=== PATIENT | male | born 1985 | race Caucasian/White ===

== ENCOUNTER 2022-05-03 19:25 | Inpatient (IN) | payer OTHER ==
[~2022-05-03] VITALS: Ht 175.3 cm; Wt 96.7 kg
[2022-05-03 20:05] LABS: Source, Urine Clean Catch
[2022-05-03 20:08] LABS: BASOPHILS ABSOLUTE AUTO 0.06 K/mm3 (0.00-0.23); BASOPHILS PERCENT AUTO 0 % (0-2); EOSINOPHILS PERCENT AUTO 0 % (0-6); Hematocrit 48.8 % (37.0-53.0); Hemoglobin 16.7 g/dL (13.5-17.5); IMMATURE GRAN ABSOLUTE AUTO 0.11 K/mm3 (0.00-0.10); IMMATURE GRAN PERCENT AUTO 1 % (0-1); LYMPHOCYTES ABSOLUTE AUTO 0.92 K/mm3 (0.84-5.20); LYMPHOCYTES PERCENT AUTO 5 % (21-46); MONOCYTES ABSOLUTE AUTO 0.56 K/mm3 (0.16-1.47); MONOCYTES PERCENT AUTO 3 % (4-13); Mean Corpuscular HGB 32.6 pg (26.0-34.0); Mean Corpuscular HGB Conc 34.2 g/dL (31.5-36.5); Mean Corpuscular Volume 95 fL (80-100); Mean Platelet Volume 10.3 fL (9.1-12.4); NEUTROPHILS ABSOLUTE AUTO 18.48 K/mm3 (1.96-9.15); NEUTROPHILS PERCENT AUTO 92 % (41-73); Platelet Count 293 K/mm3 (150-400); RDW Coefficient Variation 12.3 % (11.7-14.2); RDW Standard Deviation 43.3 fL (35.1-46.3); Red Blood Cell Count 5.13 M/mm3 (4.30-5.90); White Blood Cell Count 20.13 K/mm3 (4.00-11.30)
[2022-05-03 20:09] LABS: Appearance, Urine Clear (Clear); Bilirubin, Urine Neg (Neg); Blood, Urine 1+ (Neg); Color, Urine Amber (P-Yellow); Glucose Qualitative, Urine Neg (Neg); Ketones, Urine Neg (Neg); Leukocyte Esterase, Urine Neg (Neg); Nitrite, Urine Neg (Neg); Protein, Urine Neg (Neg); Specific Gravity, Urine 1.025 (1.003-1.022); Urobilinogen, Urine NORM (Normal)
[2022-05-03 20:21] LABS: Albumin/Globulin Ratio 0.9 (0.8-1.8); Bun/Creatinine Ratio 8.1 (12.0-20.0); Calcium, Blood 9.2 mg/dL (8.5-10.1); Creatinine, Blood 0.86 mg/dL (0.60-1.20); Globulin, Blood 4.5 g/dL (2.2-4.0); Potassium, Blood 3.9 mmol/L (3.5-5.5); Total Protein, Blood 8.5 g/dL (6.4-8.2)
[2022-05-03 20:22] LABS: Bacteria Rare /hpf; Squamous Epithelial Cells Few /hpf (Few); White Blood Cells, Urine 0-2 /hpf (0-5)
[2022-05-03 23:16] LABS: Influenza A, PCR NEGATIVE (NEGATIVE); Influenza B, PCR NEGATIVE (NEGATIVE); Resp Syncytial Virus, PCR NEGATIVE (NEGATIVE); SARS-Cov-2 (COVID-19) PCR, MMC NEGATIVE (NEGATIVE)
[2022-05-04 01:30] LABS: BASOPHILS ABSOLUTE AUTO 0.04 K/mm3 (0.00-0.23); BASOPHILS PERCENT AUTO 0 % (0-2); EOSINOPHILS PERCENT AUTO 0 % (0-6); Hematocrit 40.5 % (37.0-53.0); IMMATURE GRAN ABSOLUTE AUTO 0.07 K/mm3 (0.00-0.10); IMMATURE GRAN PERCENT AUTO 0 % (0-1); LYMPHOCYTES ABSOLUTE AUTO 0.72 K/mm3 (0.84-5.20); LYMPHOCYTES PERCENT AUTO 4 % (21-46); MONOCYTES ABSOLUTE AUTO 0.39 K/mm3 (0.16-1.47); MONOCYTES PERCENT AUTO 2 % (4-13); Mean Corpuscular HGB 32.8 pg (26.0-34.0); Mean Corpuscular HGB Conc 34.6 g/dL (31.5-36.5); Mean Corpuscular Volume 95 fL (80-100); NEUTROPHILS ABSOLUTE AUTO 15.91 K/mm3 (1.96-9.15); NEUTROPHILS PERCENT AUTO 93 % (41-73); Platelet Count 195 K/mm3 (150-400); RDW Coefficient Variation 12.2 % (11.7-14.2); RDW Standard Deviation 42.6 fL (35.1-46.3); Red Blood Cell Count 4.27 M/mm3 (4.30-5.90); White Blood Cell Count 17.13 K/mm3 (4.00-11.30)
[2022-05-04 01:48] LABS: Magnesium, Blood 1.5 mg/dL (1.6-2.4)
[2022-05-04 01:54] LABS: Albumin/Globulin Ratio 0.9 (0.8-1.8); Bilirubin, Total 0.7 mg/dL (0.1-1.0); Bun/Creatinine Ratio 7.8 (12.0-20.0); Creatinine, Blood 0.89 mg/dL (0.60-1.20); Globulin, Blood 3.5 g/dL (2.2-4.0); Phosphorus, Blood 1.7 mg/dL (2.5-4.9); Potassium, Blood 3.7 mmol/L (3.5-5.5); Total Protein, Blood 6.5 g/dL (6.4-8.2)
--- NOTE | 2022-05-04 04:46 | NUR ---
SENIOR BACK END JAVA DEVELOPER SUMMARY NEW ADMIT FROM THE ED TONIGHT. PT ADMITTED FOR ACUTE APPENDICITIS. PT MEDICATED WITH IV TORADOL WHICH HELPED PT SLEEP MOST OF THE NIGHT. PT REPORTS DRINKING 12-15 BEERS PER DAY, THE MOST RECENT WAS AT 0830. CIWA OF 1 THIS SHIFT. PT HAD REPEAT LACTIC LEVEL OF 3, NOTIFIED DR MILLS WHO SAID TO KEEP PT ON CURRENT FLUIDS. NPO THROUGH THE NIGHT. DR ROBERTSON TO CONSULT LATER TODAY. VSS, WILL CONTINUE TO MONITOR.
--- NOTE | 2022-05-04 10:23 | NUR ---
PT TO DAY SURGERY AT THIS TIME.
--- NOTE | 2022-05-04 12:42 | NUR ---
THE PATIENT WAS BROUGHT TO DAY SURGERY FOR HIS PROCEDURE.
--- NOTE | 2022-05-04 13:16 | NUR ---
05/04/22 1316 Shayy Roy PT. IS ON SCHEDULED ABX
--- NOTE | 2022-05-04 17:04 | NUR ---
SHIFT SUMMARY PT S/P LAP APPY DONE TODAY BY DR. ROBERTSON. 3 LAP SITES WITH STERI STRIPS ON ABD CDI. NO NAUSEA OR VOMITTING POST OP BUT PT IS FAIRLY PAINFUL. TREATED PER EMR FOR PAIN. APPENDIX WAS FOUND TO BE PERFORATED SO PT IS TO RECEIVE IV ANTIBIOTICS. VSS.
[2022-05-05 04:18] LABS: BASOPHILS ABSOLUTE AUTO 0.03 K/mm3 (0.00-0.23); BASOPHILS PERCENT AUTO 0 % (0-2); EOSINOPHILS PERCENT AUTO 0 % (0-6); Hematocrit 34.1 % (37.0-53.0); Hemoglobin 11.5 g/dL (13.5-17.5); IMMATURE GRAN ABSOLUTE AUTO 0.09 K/mm3 (0.00-0.10); IMMATURE GRAN PERCENT AUTO 0 % (0-1); LYMPHOCYTES ABSOLUTE AUTO 0.51 K/mm3 (0.84-5.20); LYMPHOCYTES PERCENT AUTO 3 % (21-46); MONOCYTES PERCENT AUTO 3 % (4-13); Mean Corpuscular HGB 32.9 pg (26.0-34.0); Mean Corpuscular HGB Conc 33.7 g/dL (31.5-36.5); Mean Corpuscular Volume 97 fL (80-100); Mean Platelet Volume 10.3 fL (9.1-12.4); NEUTROPHILS ABSOLUTE AUTO 19.18 K/mm3 (1.96-9.15); NEUTROPHILS PERCENT AUTO 95 % (41-73); Platelet Count 203 K/mm3 (150-400); RDW Coefficient Variation 12.8 % (11.7-14.2); RDW Standard Deviation 45.2 fL (35.1-46.3); White Blood Cell Count 20.31 K/mm3 (4.00-11.30)
[2022-05-05 04:35] LABS: Bun/Creatinine Ratio 7.3 (12.0-20.0); Calcium, Blood 8.4 mg/dL (8.5-10.1); Creatinine, Blood 0.82 mg/dL (0.60-1.20); Magnesium, Blood 2.1 mg/dL (1.6-2.4); Phosphorus, Blood 1.3 mg/dL (2.5-4.9); Potassium, Blood 4.4 mmol/L (3.5-5.5)
--- NOTE | 2022-05-05 07:31 | NUR ---
SUMMARY UP IN HALLS.NO FLATUS YET.DENIES NAUSEA.STATES HUNGRY.SLEPT OFF AND ON AFTER MEDS,BUT REPORTED MINIMAL PAIN CONTROL WHEN AWAKE AND AMBULATORY. DAY RN AGREES TO FOLLOW UP.
--- NOTE | 2022-05-05 16:59 | NUR ---
SUMMARY PT HAS BEEN AMBULATING DOWN THE HALLS SEVERAL TIMES TODAY, TOLERATED WELL, DIET ADVANCED TO REGULAR, PT ATE A FEW BITES BUT STATES HE JUST DIDN'T LIKE THE FOOD, CIWA SCORE IS 2, ABD INCISIONS C/D/I, NO ACUTE CHANGES THIS SHIFT.
--- NOTE | 2022-05-05 17:59 | NUR ---
PT AMBULATED DOWN THE HALLS, REPORTS PASSING FLATUS THIS EVENING.
[2022-05-06 04:47] LABS: BASOPHILS ABSOLUTE AUTO 0.03 K/mm3 (0.00-0.23); BASOPHILS PERCENT AUTO 0 % (0-2); EOSINOPHILS ABSOLUTE AUTO 0.05 K/mm3 (0.00-0.68); EOSINOPHILS PERCENT AUTO 0 % (0-6); Hematocrit 35.2 % (37.0-53.0); Hemoglobin 11.9 g/dL (13.5-17.5); IMMATURE GRAN ABSOLUTE AUTO 0.11 K/mm3 (0.00-0.10); IMMATURE GRAN PERCENT AUTO 1 % (0-1); LYMPHOCYTES PERCENT AUTO 7 % (21-46); MONOCYTES ABSOLUTE AUTO 0.69 K/mm3 (0.16-1.47); MONOCYTES PERCENT AUTO 4 % (4-13); Mean Corpuscular HGB 32.6 pg (26.0-34.0); Mean Corpuscular HGB Conc 33.8 g/dL (31.5-36.5); Mean Corpuscular Volume 96 fL (80-100); Mean Platelet Volume 10.4 fL (9.1-12.4); NEUTROPHILS ABSOLUTE AUTO 17.41 K/mm3 (1.96-9.15); NEUTROPHILS PERCENT AUTO 88 % (41-73); Platelet Count 285 K/mm3 (150-400); RDW Coefficient Variation 12.6 % (11.7-14.2); RDW Standard Deviation 44.9 fL (35.1-46.3); Red Blood Cell Count 3.65 M/mm3 (4.30-5.90); White Blood Cell Count 19.69 K/mm3 (4.00-11.30)
--- NOTE | 2022-05-06 07:30 | NUR ---
SUMMARY PT SLEPT QUIETLY. MED THIS AM WHEN AWAKENED, NORCO WITH MINIMAL CHANGE IN PAIN.DOCTORS AWARE.PT WITH HX ETOH. DRINKING BEER THIS ADMIT. PT UP IN HALLS AND PASSING SMALL AMNT FLATUS THIS AM.
--- NOTE | 2022-05-06 11:40 | NUR ---
PT C/O EPIGASTRIC PAIN AND NAUSEA TODAY, DR. ROBERTSON NOTIFIED THIS AM, PAIN MEDS CHANGED TO PERCOCET, ZOFRAN GIVEN, PT NOW AMBULATING DOWN THE PUCKETT, CONT. TO MONITOR FOR ANY CHANGES.
--- NOTE | 2022-05-06 17:18 | NUR ---
SUMMARY PT HAVING MORE PAIN THIS AM AND NAUSEA, PAIN MEDS CHANGED TO PERCOCET, PT REPORTS HAVING BETTER PAIN CONTROL WITH PERCOCET, AMBULATED DOWN THE HALLS 3 TIMES TODAY, TOOK A SHOWER, ZOFRAN GIVEN ONCE FOR NAUSEA WITH GOOD RELIEF, PT STATES HE WAS ABLE TO TOLERATE FOOR A LITTLE BETTER, CONT. TO PASS FLATUS AND HAD 1 FORMED BM TODAY, NO OTHER CHANGES THIS SHIFT.
--- NOTE | 2022-05-07 00:37 | NUR ---
PT VOIDING DARKER TONIGHT THAN LAST NIGHT.REPORTS MILD BURNING WITH URINATION.ENCOURAGED TO INCREASE PO FLUIDS TO TOLERANCE.PT REPORTS HAS HAD DECREASED PO INTAKE TODAY DUE TO INCREASED ABD DISTENSION WITH PRESSURE TO UPPER ABD AND DECREASED FLATUS PASSING.PT REPORTS HAD SMALL BM TODAY. MED EARLIER IN DAY X1 FOR NAUSEA.DENIES NAUSEA SO FAR TONIGHT.BTS HYPOACTIVE NOTED PER SURGERY WITH ROUNDING TODAY.PT AMBULATORY IN ROOM AND HALLS.URINE GETTING JIG OPERATOR WITH INTAKE OF H20 AND APPLE JUICE.PT REPORTING PAIN INCREASING AT THIS TIME STATES SHARP PAINS INTERMITTENTLY TO UPPER ABD.PT ANXIOUS.STATES HIS PAIN IS "WORSE THAN RIGHT AFTER SURGERY"PREVIOUSLY REPORTING PERCOCET WITH IMPROVED EFFECTIVENESS OVER PRIOR NORCO.SEE CIWA.PT WITH TACHYCARDIA. I REVIEWED ALL PRIOR LABS.DR ZELAYA NOTES.I DIRECTED PT TO HOLD OFF ON PO FOR NOW AND I CALLED DR MARTINI AND ADVISED OF ABOVE.REVIEWED LABS.SEE VS.DR MARTINI PUTTING IN ORDER FOR IV FLUIDS AND PAIN MEDS.NO OTHER ORDERS AT THIS TIME. DR MARTINI VERB TO CALL BACK WITHIN 2 HRS AFTER MEDS AND FLUIDS STARTED IF PT DOES NOT IMPROVE,OR IF PT WORSENS.
--- NOTE | 2022-05-07 02:52 | NUR ---
PT RECEIVING IV FLUIDS .RECEIVED DOSE OF SUBLIMAZE. ALSO DRINKING BEER WHICH HE DID NOT DRINK ORDERED WITH HIS MEALS.RECEIVED DOSE OF ZOFRAN FOR C/O NAUSEA.PT WITH ETOH ABUSE HX REPORTS DRINKS IN EXCESS OF 12 BEERS PER DAY AT HOME.PT RESTED INITIALLY AFTER PAIN MED AND BEER. NOW AWAKE. UP IN HALLS.SEE REPEAT CIWA.TACHY NO FLATUS PASSED.CONT TO C/O INCREASED ABD PAIN AND BLOATING.PT UP IN SHOWER AT THIS TIME HE REQUESTED. CASINO MANAGER ASSIST.I CALLED DR MARTINI AND ADVISED OF ABOVE.DR MARTINI ORDERING CT SCAN.
--- NOTE | 2022-05-07 03:20 | NUR ---
RADIOLOGY ? IF CT SHOULD BE WITH CONTRAST AND WAS ORDERED WITHOUT. I SPOKE WITH DR MARTINI AND HE WISHES TI DONE WITH CONTRAST. EDMOND CUT OFF SAW OPERATOR REPORTED SHE WILL CHANGE ORDER TO BE DONE WITH CONTRAST.F/U DISCUSSED INCREASED CHANGE IN CIWA AND RECEIVED ORDER FOR ATIVAN.
--- NOTE | 2022-05-07 03:30 | NUR ---
PT OUT TO RADIOLOGY PER COFFEE BREAK ATTENDANT VIA W/C.
--- NOTE | 2022-05-07 04:05 | NUR ---
PT RETURNED FROM CT SCAN. VOMITED ON ARRIVAL TO OF 700 ML BROWN LIQ.REPORTS PAIN WITH SOME IMPROVEMENT AFTER EMESIS. ATIVAN GIVEN AND IV ANTIBIOTIC STARTED.
[2022-05-07 04:36] LABS: BASOPHILS ABSOLUTE AUTO 0.05 K/mm3 (0.00-0.23); BASOPHILS PERCENT AUTO 0 % (0-2); EOSINOPHILS ABSOLUTE AUTO 0.04 K/mm3 (0.00-0.68); EOSINOPHILS PERCENT AUTO 0 % (0-6); Hematocrit 35.3 % (37.0-53.0); Hemoglobin 12.1 g/dL (13.5-17.5); IMMATURE GRAN ABSOLUTE AUTO 0.22 K/mm3 (0.00-0.10); IMMATURE GRAN PERCENT AUTO 1 % (0-1); LYMPHOCYTES ABSOLUTE AUTO 0.62 K/mm3 (0.84-5.20); LYMPHOCYTES PERCENT AUTO 4 % (21-46); MONOCYTES ABSOLUTE AUTO 0.67 K/mm3 (0.16-1.47); MONOCYTES PERCENT AUTO 4 % (4-13); Mean Corpuscular HGB 32.6 pg (26.0-34.0); Mean Corpuscular HGB Conc 34.3 g/dL (31.5-36.5); Mean Corpuscular Volume 95 fL (80-100); NEUTROPHILS ABSOLUTE AUTO 13.58 K/mm3 (1.96-9.15); NEUTROPHILS PERCENT AUTO 90 % (41-73); Platelet Count 276 K/mm3 (150-400); RDW Coefficient Variation 12.4 % (11.7-14.2); RDW Standard Deviation 42.9 fL (35.1-46.3); Red Blood Cell Count 3.71 M/mm3 (4.30-5.90); White Blood Cell Count 15.18 K/mm3 (4.00-11.30)
--- NOTE | 2022-05-07 05:03 | NUR ---
RECEIVED CT REPORT PER KANWAL AND DR MARTINI ARRIVED TO CHECK ON PT. DR MARTINI CALLED AND SPOKE WITH DR ROBERTSON AT 0445.PRESENTLY, PT AM LABS REVIEWED PER DR MRATINI AND REPEAT CBC ORDERED FOR 0900.TELE ORDERED. PT HAS BEEN TACHYCARDIC.WILL NOTIFY DR MARTINI IF NEGATIVE CHANGES IN VS OR OTHER CONCERNS. NURSING SUPERVISER Gen YOUNGBLOOD RN AWARE.
--- NOTE | 2022-05-07 06:44 | NUR ---
PT REPORTS SOB. SATS STABLE IN 90'S.PT ANXIOUS. I CALLED DR MARTINI AND ADVISED OF ABOVE.DOCTOR ORDERED ATIVAN. PT UP WALKING IN HALLS.
[2022-05-07 10:34] LABS: BASOPHILS ABSOLUTE AUTO 0.06 K/mm3 (0.00-0.23); BASOPHILS PERCENT AUTO 0 % (0-2); EOSINOPHILS ABSOLUTE AUTO 0.02 K/mm3 (0.00-0.68); EOSINOPHILS PERCENT AUTO 0 % (0-6); Hematocrit 34.6 % (37.0-53.0); Hemoglobin 11.9 g/dL (13.5-17.5); IMMATURE GRAN ABSOLUTE AUTO 0.17 K/mm3 (0.00-0.10); IMMATURE GRAN PERCENT AUTO 1 % (0-1); LYMPHOCYTES ABSOLUTE AUTO 0.62 K/mm3 (0.84-5.20); LYMPHOCYTES PERCENT AUTO 4 % (21-46); MONOCYTES ABSOLUTE AUTO 0.74 K/mm3 (0.16-1.47); MONOCYTES PERCENT AUTO 5 % (4-13); Mean Corpuscular HGB 32.3 pg (26.0-34.0); Mean Corpuscular HGB Conc 34.4 g/dL (31.5-36.5); Mean Corpuscular Volume 94 fL (80-100); Mean Platelet Volume 10.3 fL (9.1-12.4); NEUTROPHILS ABSOLUTE AUTO 13.21 K/mm3 (1.96-9.15); NEUTROPHILS PERCENT AUTO 89 % (41-73); Platelet Count 311 K/mm3 (150-400); RDW Coefficient Variation 12.4 % (11.7-14.2); RDW Standard Deviation 43.1 fL (35.1-46.3); Red Blood Cell Count 3.68 M/mm3 (4.30-5.90); White Blood Cell Count 14.82 K/mm3 (4.00-11.30)
--- NOTE | 2022-05-07 18:10 | NUR ---
SHIFT SUMMARY PT HAS STRUGGLED ON/OFF w/ N/V & DISTENTION. HAS HAD 2 BM's ONE SMALL & FIRM & ONE LOOSE w/ SOME GAS. WAS GIVEN SOME SIPS OF WATER IN AM BUT HAS BEEN RESTRICTED TO ICE CHIPS THIS AFTERNOON. TACHYCARDIA INCREASED THIS AFTERNOON & DR ENGLISH MADE AWARE OF HR 130's-140's. DR ROBERTSON UPDATED ON N/V, ABD DISTENTION, & SPIKE OF TEMP THIS AFTERNOON. PT CONTINUES TO AMBULATE EVERY 60-90 MINS, STRONG GAIT. CIWA's CHARTED.
--- NOTE | 2022-05-08 00:18 | NUR ---
ASSUMED CARE AT THIS TIME. PT RESTING IN BED, AWOKE BRIEFLY R/T PAIN, MEDICATED PER ORDERS. PT NOW BACK TO RESTING IN BED WITH CALL LIGHT IN REACH.
--- NOTE | 2022-05-08 04:59 | NUR ---
SHIFT SUMMARY PT RESTLESS T/O MORNING. AAOX4. DISCOMFORT MINIMIZED WITH 50mcg FENTANYL PER ORDERS, NAUSEA DECREASED WITH PHENERGAN / REGLAN. SMALL AMOUNT OF GREEN EMESIS THIS AM. PT UP AMBULATING IN HALLS Q3-4H T/O NIGHT. ABD FIRM, NO ACUTE CHANGE SINCE ASSUMING CARE AT MIDNIGHT. IVF PER ORDERS. RESTING AT THIS TIME IN BED WITH CALL LIGHT IN REACH.
[2022-05-08 05:36] LABS: Hematocrit 30.9 % (37.0-53.0); Mean Corpuscular HGB 32.9 pg (26.0-34.0); Mean Corpuscular HGB Conc 35.6 g/dL (31.5-36.5); Mean Corpuscular Volume 93 fL (80-100); Mean Platelet Volume 9.8 fL (9.1-12.4); Platelet Count 299 K/mm3 (150-400); RDW Coefficient Variation 12.4 % (11.7-14.2); RDW Standard Deviation 42.3 fL (35.1-46.3); Red Blood Cell Count 3.34 M/mm3 (4.30-5.90); White Blood Cell Count 9.51 K/mm3 (4.00-11.30)
[2022-05-08 05:59] LABS: Albumin, Blood 2.5 g/dL (3.4-5.0); Anion Gap 11 mmol/L (6-16); Blood Urea Nitrogen 10 mg/dL (8-24); Bun/Creatinine Ratio 9.5 (12.0-20.0); CO2, Blood 31 mmol/L (21-32); Calcium, Blood 9.1 mg/dL (8.5-10.1); Chloride, Blood 90 mmol/L (98-108); Creatinine, Blood 1.05 mg/dL (0.60-1.20); Glomerular Filtration Rate 96 (60-); Glucose, Blood 135 mg/dL (70-99); Magnesium, Blood 2.2 mg/dL (1.6-2.4); Phosphorus, Blood 3.2 mg/dL (2.5-4.9); Potassium, Blood 2.7 mmol/L (3.5-5.5); Sodium, Blood 132 mmol/L (136-145)
--- NOTE | 2022-05-08 17:09 | NUR ---
SHIFT SUMMARY PATIENT ALERT AND ORIENTED WHEN AWAKE THROUGHOUT SHIFT. CIWAS 7 OR LESS WITH SLIGHT TREMORS AND ANXIETY. MEDS PRN. AMBULATING IN HALLS FREQUENTLY. ABD LAP SITES WNL. ABD DISTENDED AND TENDER. NAUSEA AND VOMITING, MEDS PRN. REPORTS SOME GAS AND BM'S, VOIDING WELL. TAKING SIPS AND CHIPS. MEDICATED FOR PAIN PRN. NEW POWERGLIDE PLACED, PERIPHERAL IV DC'D. CLINIMIX, LIPIDS, POTASSIUM, AND ABX IV PER EMAR. TELE DC'D.
--- NOTE | 2022-05-09 04:56 | NUR ---
SHIFT SUMMARY PT CONTINUES TO HAVE ABD PAIN AND NAUSEA, HE REPORTS THOUGH THAT HIS SYMPTOMS ARE IMPROVING AND THAT HE IS BEGINNING TO HAVE AN APPETITE. PT DENIES VOMITTING THIS SHIFT. PT MEDICATED FOR NAUSEA AND PAIN PER EMAR. PT REMAINS INDEPENDENT IN THE ROOM AND CONTIUES TO AMBULATE IN THE HALLS TO FURHTER ALLEVIATE PAIN. VITALS ARE STABLE. NO ACUTE CHANGES OVERNIGHT. BED IN LOWEST POSITION, CALL LIGHT WITHIN REACH.
[2022-05-09 06:43] LABS: Hematocrit 28.5 % (37.0-53.0); Hemoglobin 9.9 g/dL (13.5-17.5); Mean Corpuscular HGB Conc 34.7 g/dL (31.5-36.5); Mean Corpuscular Volume 95 fL (80-100); Mean Platelet Volume 9.8 fL (9.1-12.4); Platelet Count 320 K/mm3 (150-400); RDW Coefficient Variation 12.7 % (11.7-14.2); RDW Standard Deviation 44.2 fL (35.1-46.3); White Blood Cell Count 7.69 K/mm3 (4.00-11.30)
[2022-05-09 07:11] LABS: Albumin, Blood 2.2 g/dL (3.4-5.0); Anion Gap 10 mmol/L (6-16); Blood Urea Nitrogen 14 mg/dL (8-24); Bun/Creatinine Ratio 14.8 (12.0-20.0); CO2, Blood 32 mmol/L (21-32); Calcium, Blood 8.5 mg/dL (8.5-10.1); Chloride, Blood 94 mmol/L (98-108); Creatinine, Blood 0.95 mg/dL (0.60-1.20); Glomerular Filtration Rate 108 (60-); Glucose, Blood 114 mg/dL (70-99); Magnesium, Blood 2.7 mg/dL (1.6-2.4); Phosphorus, Blood 3.6 mg/dL (2.5-4.9); Potassium, Blood 3.5 mmol/L (3.5-5.5); Sodium, Blood 136 mmol/L (136-145)
--- NOTE | 2022-05-09 09:25 | NUR ---
CT RETURNED TO SUCTION
--- NOTE | 2022-05-09 17:39 | NUR ---
SUMMARY NO ACUTE CHANGES T/O SHIFT. PT CONTINUES TO HAVE PAIN AND INTERMITTENT NAUSEA. DID NOT REPORT ANY EMESIS THIS SHIFT. REPORTED SMALL, GREEN LOOSE BM. AMBULATED IN HALLS MULTIPLE TIMES.
--- NOTE | 2022-05-10 03:39 | NUR ---
PARTS TECHNICIAN SUMMARY PT CONTINUES TO HAVE INTERMITTENT NAUSEA THROUGH THE NIGHT WELL ABD PAIN. MEDICATED FOR PAIN AND NAUSEA REGULARLY THROUGH THE NIGHT. PT STATES HIS ABD PAIN/BLOATING SEEMS A BIT WORSE SINCE TAKING IN SMALL AMOUNTS OF CLEAR LIQUIDS TODAY. PT DOES REPORT OCCASIONAL FLATUS BUT NO BM TONIGHT. PT WALKING HALLS OFTEN THROUGH THE NIGHT. VSS, WILL CONTINUE TO MONITOR.
--- NOTE | 2022-05-10 14:10 | NUR ---
PT AMBULATING INDEPENDENTLY IN HALLS. PT HAS BEEN MEDICATED THUS FAR W/NAUSEA MEDS AND PAIN MEDS PER EMAR. DISCUSSED PT'S FEVER AND TACHY HR WITH DR ROBERTSON. ALSO RELAYED CRANE OPERATOR'S RECOMMENDATIONS FOR PPN/TPN TO DR ROBERTSON. PT REPORTS HAS HAD TWO SMALL GREEN BMS THIS SHIFT. CARE TURNED OVER TO MARTIN Li RN.
--- NOTE | 2022-05-10 19:31 | NUR ---
SHIFT SUMMARY PAIN MANGED WITH PO AND IV PAIN MEDICATION. PT CONTINUES TO REPORT NAUSEA, MANAGED WITH IV PAIN MEDICATION. ABD REMAINS DISTENDED. PT CONTINUING TO AMBULATE IN THE HALWAYS. NO CHANGES TO REPORT SINCE CARE ASSUMED OF PT.
--- NOTE | 2022-05-11 04:45 | NUR ---
HAND I TUBE BENDER SUMMARY PT HAS SHOWN SOME IMPROVEMENT TONIGHT. NAUSEA IS BETTER AND PT NOT NEEDING NAUSEA MEDS OFTEN, HOWEVER PT STILL HAVING CONSISTENT ABD PAIN REQUIRING PAIN MEDS. STILL GOING ON WALKS IN THE HALLS FREQUENTLY THROUGH THE NIGHT. PT REPORTED 1 SMALL LOOSE UNFORMED STOOL SIMILAR TO OTHER RECENT STOOLS. VSS, WCTM.
[2022-05-11 09:48] LABS: Hemoglobin 10.9 g/dL (13.5-17.5); Mean Corpuscular HGB Conc 34.1 g/dL (31.5-36.5); Mean Corpuscular Volume 94 fL (80-100); Mean Platelet Volume 9.4 fL (9.1-12.4); Platelet Count 571 K/mm3 (150-400); RDW Coefficient Variation 12.9 % (11.7-14.2); RDW Standard Deviation 44.2 fL (35.1-46.3); Red Blood Cell Count 3.41 M/mm3 (4.30-5.90); White Blood Cell Count 20.48 K/mm3 (4.00-11.30)
[2022-05-11 10:09] LABS: Albumin, Blood 2.2 g/dL (3.4-5.0); Anion Gap 9 mmol/L (6-16); Blood Urea Nitrogen 12 mg/dL (8-24); Bun/Creatinine Ratio 14.3 (12.0-20.0); CO2, Blood 32 mmol/L (21-32); Chloride, Blood 91 mmol/L (98-108); Creatinine, Blood 0.84 mg/dL (0.60-1.20); Glomerular Filtration Rate 117 (60-); Glucose, Blood 110 mg/dL (70-99); Phosphorus, Blood 3.2 mg/dL (2.5-4.9); Potassium, Blood 3.6 mmol/L (3.5-5.5); Sodium, Blood 132 mmol/L (136-145)
[2022-05-11 10:31] LABS: BAND PERCENT MAN 7 % (0-8); BASOPHILS PERCENT MAN 0 % (0-2); EOSINOPHILS ABSOLUTE MAN 0.61 K/mm3 (0.00-0.68); EOSINOPHILS PERCENT MAN 3 % (0-6); LYMPHOCYTES % ATYPICAL MANUAL 2 % (0-0); LYMPHOCYTES ABSOLUTE MAN 1.63 K/mm3 (0.84-5.20); LYMPHOCYTES PERCENT MAN 6 % (21-46); METAMYELOCYTE PERCENT MAN 1 % (0-0); MONOCYTES ABSOLUTE MAN 1.22 K/mm3 (0.16-1.47); MONOCYTES PERCENT MAN 6 % (4-13); MYELOCYTE PERCENT MAN 1 % (0-0); NEUTROPHILS ABSOLUTE MAN 16.58 K/mm3 (1.96-9.15); SEG NEUTROPHILS PERCENT MAN 74 % (41-73); TOTAL CELLS COUNTED 100
--- NOTE | 2022-05-11 17:00 | NUR ---
SHIFT SUMMARY: POD 7 PERF APPY PATIENT IS A&OX4. PATIENT INTERMITTENTLY IS TACHY BUT OTHERWISE HAS WNL VS. PATIENT IS ON RA WITH >90% OXYGEN SATS. NG TUBE HAS BEEN PLACED THIS SHIFT TO LOW INTERMITTENT SUCTION. OUTPUT FROM NG IS DARK BROWN AND GREEN. PATIENT REPORTS DECREASED NAUSEA SINCE NG TUBE PLACEMENT. HE STILL REPORTS 7/10 PAIN FROM HIS ABD. PATIENT HAS RECIEVED IV DILAUDID AND PO PERCOCET FOR PAIN. BOWEL TONES ARE HYPOACTIVE. HE IS OKAY TO HAVE SIPS AND CHIPS WITH NG TUBE IN PER DR. ROBERTSON AND IS TOLERATING THAT WELL. HE IS VOIDING AND HAVING SMALL CLEAR/GREENISH JELLY TEXTURED BMS FOR TWO DAYS NOW. CALLS APPROPRIATELY. CALL LIGHT WITHIN REACH. THE PLAN IS TO KEEP NG TUBE IN AND TO GET A PICC LINE PLACED FOR BETTER NUTRITION.
[2022-05-12 05:37] LABS: Source, Urine Clean Catch
[2022-05-12 05:40] LABS: Blood, Urine 2+ (Neg); Glucose Qualitative, Urine Neg (Neg); Ketones, Urine 1+ (Neg); Leukocyte Esterase, Urine 1+ (Neg); Nitrite, Urine Neg (Neg); Protein, Urine 3+ (Neg); Urobilinogen, Urine 2+ (Normal)
[2022-05-12 05:48] LABS: Appearance, Urine Clear (Clear); Bilirubin, Urine 2+ (Neg); Color, Urine Amber (P-Yellow)
[2022-05-12 05:54] LABS: Amorphous Mod (0-Heavy); Bacteria Few /hpf; Red Blood Cells, Urine 0-2 /hpf (0-2); Squamous Epithelial Cells Rare /hpf (Few); White Blood Cells, Urine 0-2 /hpf (0-5)
--- NOTE | 2022-05-12 07:24 | NUR ---
SHIFT SUMMARY POD8 LAP APPY WITH PERF. NG TUBE WITH LIS. 2150 OUTPUT DRAINAGE WITH GREEN BILE. PT ON SMALL SIPS AND ICE CHIPS BUT HAS BEEN TAKEN MORE THAN THAT. ADVICE PT TO SLOW DOWN ON ORAL INTAKE. ORAL INTAKE OF 1200ML. PT REPORTS RELIEF ON NAUSEA AND PAIN AFTER NG TUBE WAS PLACE. DIDN'T REQUIRE NAUSEA MEDICATION T/O SHIFT. PAIN MANAGED WITH DILAUDID 1MG/ML Q2. AMBULATES IN THE HALLWAY ONCE AT MIDNIGHT. DIDN'T SLEEP WELL BUT STS THAT HE FEELS A LOT BETTER. VOIDING DARK/TEA COLOR URINE. URINE SAMPLE SENT TO LAB THIS AM. IV ABX, CLINIMEX AND INTRALIPID GIVEN OVERNIGHT. PT HAS POWERGLIDE ON RADHAMES, WAITING FOR PICC LINE PLACEMENT SO PT CAN SWITCH TO TPN. CALL LIGHT WITHIN REACH. REPORT GIVEN TO FABIO AJ.
[2022-05-12 09:43] LABS: BASOPHILS ABSOLUTE AUTO 0.13 K/mm3 (0.00-0.23); BASOPHILS PERCENT AUTO 1 % (0-2); EOSINOPHILS ABSOLUTE AUTO 0.09 K/mm3 (0.00-0.68); EOSINOPHILS PERCENT AUTO 0 % (0-6); Hematocrit 29.8 % (37.0-53.0); Hemoglobin 10.6 g/dL (13.5-17.5); IMMATURE GRAN ABSOLUTE AUTO 1.08 K/mm3 (0.00-0.10); IMMATURE GRAN PERCENT AUTO 5 % (0-1); LYMPHOCYTES ABSOLUTE AUTO 0.93 K/mm3 (0.84-5.20); LYMPHOCYTES PERCENT AUTO 4 % (21-46); MONOCYTES PERCENT AUTO 7 % (4-13); Mean Corpuscular HGB 32.8 pg (26.0-34.0); Mean Corpuscular HGB Conc 35.6 g/dL (31.5-36.5); Mean Corpuscular Volume 92 fL (80-100); Mean Platelet Volume 9.7 fL (9.1-12.4); NEUTROPHILS ABSOLUTE AUTO 18.16 K/mm3 (1.96-9.15); NEUTROPHILS PERCENT AUTO 83 % (41-73); Platelet Count 606 K/mm3 (150-400); RDW Coefficient Variation 13.1 % (11.7-14.2); RDW Standard Deviation 44.5 fL (35.1-46.3); Red Blood Cell Count 3.23 M/mm3 (4.30-5.90); White Blood Cell Count 21.99 K/mm3 (4.00-11.30)
[2022-05-12 09:53] LABS: Albumin, Blood 2.1 g/dL (3.4-5.0); Albumin/Globulin Ratio 0.4 (0.8-1.8); Bilirubin, Total 3.3 mg/dL (0.1-1.0); Bun/Creatinine Ratio 19.3 (12.0-20.0); Calcium, Blood 9.1 mg/dL (8.5-10.1); Creatinine, Blood 0.88 mg/dL (0.60-1.20); Globulin, Blood 5.5 g/dL (2.2-4.0); Potassium, Blood 3.3 mmol/L (3.5-5.5); Total Protein, Blood 7.6 g/dL (6.4-8.2)
--- NOTE | 2022-05-12 17:21 | NUR ---
SHIFT SUMMARY POD8 LAP APPY, A/OX4, VSS, TOLERATING SIPS/CHIPS, NG IN PLACE AND PATIENT EDUCATED ON ANYTHING HE TAKES IN IS JUST GOING TO COME OUT THROUGH THE NG TUBE THOUGH PT INSISTS ON CONTINUING TO TAKE IN PO WHICH IS INFLATING HIS NG SUCTION AMOUNT OUTPUT. PT PAINFUL BUT REPORTS BETTER MANAGEMENT SINCE CHANGING TO DILAUDID. PICC LINE PLACEMENT CURRENTLY BEING EVALUATED BY CUSTOMER EXPERIENCE MANAGER SO HE CAN START CPN. NO ACUTE EVENTS THIS SHIFT, CALL LIGHT IN REACH, WILL CTM AND REPORT TO NOC RN.
--- NOTE | 2022-05-13 03:42 | NUR ---
0315: NG TUBE GOT LOOSE, WAS ABOUT TO ADVANCE IT BUT THE PT REFUSED AND WANTED THE NG TUBE OUT. NG TUBE WAS TAKEN OUT 0320AM. NOTIFIED DR. CHILDRESS OF THIS EVENT. PT NPO AT THIS TIME.
[2022-05-13 04:50] LABS: Hematocrit 29.1 % (37.0-53.0); Hemoglobin 10.1 g/dL (13.5-17.5); Mean Corpuscular HGB 32.2 pg (26.0-34.0); Mean Corpuscular HGB Conc 34.7 g/dL (31.5-36.5); Mean Corpuscular Volume 93 fL (80-100); Mean Platelet Volume 9.6 fL (9.1-12.4); Platelet Count 645 K/mm3 (150-400); RDW Coefficient Variation 13.2 % (11.7-14.2); RDW Standard Deviation 45.1 fL (35.1-46.3); Red Blood Cell Count 3.14 M/mm3 (4.30-5.90)
[2022-05-13 05:17] LABS: Alanine Aminotransfer (ALT/SGP 51 U/L (12-78); Albumin, Blood 2.1 g/dL (3.4-5.0); Albumin/Globulin Ratio 0.4 (0.8-1.8); Alk Phos 133 U/L (50-136); Anion Gap 10 mmol/L (6-16); Aspartate Aminotrans (AST/SGOT 44 U/L (12-37); Bilirubin, Total 3.3 mg/dL (0.1-1.0); Blood Urea Nitrogen 17 mg/dL (8-24); Bun/Creatinine Ratio 21.9 (12.0-20.0); CO2, Blood 33 mmol/L (21-32); Calcium, Blood 8.7 mg/dL (8.5-10.1); Chloride, Blood 88 mmol/L (98-108); Creatinine, Blood 0.78 mg/dL (0.60-1.20); Globulin, Blood 5.1 g/dL (2.2-4.0); Glomerular Filtration Rate 120 (60-); Glucose, Blood 129 mg/dL (70-99); Magnesium, Blood 2.5 mg/dL (1.6-2.4); Phosphorus, Blood 3.5 mg/dL (2.5-4.9); Sodium, Blood 131 mmol/L (136-145); Total Protein, Blood 7.2 g/dL (6.4-8.2); Triglycerides 329 mg/dL (30-140)
[2022-05-13 05:34] LABS: BAND PERCENT MAN 6 % (0-8); BASOPHILS PERCENT MAN 0 % (0-2); EOSINOPHILS ABSOLUTE MAN 0.21 K/mm3 (0.00-0.68); EOSINOPHILS PERCENT MAN 1 % (0-6); LYMPHOCYTES ABSOLUTE MAN 1.27 K/mm3 (0.84-5.20); LYMPHOCYTES PERCENT MAN 6 % (21-46); METAMYELOCYTE ABSOLUTE MAN 0.63 K/mm3 (0.00-0.00); METAMYELOCYTE PERCENT MAN 3 % (0-0); MONOCYTES ABSOLUTE MAN 1.91 K/mm3 (0.16-1.47); MONOCYTES PERCENT MAN 9 % (4-13); MYELOCYTE ABSOLUTE MAN 0.21 K/mm3 (0.00-0.00); MYELOCYTE PERCENT MAN 1 % (0-0); NEUTROPHILS ABSOLUTE MAN 17.04 K/mm3 (1.96-9.15); SEG NEUTROPHILS PERCENT MAN 74 % (41-73); TOTAL CELLS COUNTED 100
--- NOTE | 2022-05-13 07:29 | NUR ---
Shift Summary No acute changes overnight. Pt reports abdominal pain 04/22. BT present. Pt denies nausea and vomiting. Pt was taking ice chips/sips at the beginning of shift. Then pt's NG tube got loose, and pt requesting to get it pulled and refuse to advance NG tube. NG tube removed at 0320am. Notified Dr. Vazquez. Pt on NPO at this time. Pt walked in the hallway x3. Up independently. Pt had 1 watery BM (very small) and small formed BM overnight. Voiding without difficulty but still appears concentrated. CPN running on PICC line (RADHAMES). AOx4. Call light within reach. Report given to Robbin AJ.
[2022-05-13 09:45] LABS: International Normalized Ratio 1.13; Prothrombin Time Results 11.8 Sec (9.7-11.5)
[2022-05-13 11:45] LABS: Automated BF RBC Count 0.222 M/mm3 (0-0); Automated BF WBC Count 3.079 K/mm3 (0-999); Body Fluid WBC Count 3079 /mm3 (0-999); RBC Count, Body Fluid 222000 /mm3 (0-0)
[2022-05-13 12:37] LABS: Appearance, Body Fluid Bloody (Clear); Color, Body Fluid Red (None-Yellow); Total Cell Count, Body Fluid 100
--- NOTE | 2022-05-13 19:50 | NUR ---
SHIFT SUMMARY POD9 LAP APPY, A/O X4, VSS, NPO T/O SHIFT, NG PULLED LAST NIGHT AND PT DIDN'T WANT ANOTHER ONE PLACED. MEDS GIVEN ORDERED, PARACENTESIS PERFORMED AND PT EDUCATED ON PROCEDURE AND PURPOSE. PT AMBULATED INDEPENDELTY IN THE HALLS MULTIPLE TIMES TODAY, 3 BM THIS SHIFT. NO ACUTE EVENTS THIS SHIFT,CALL LIGHT IN REACH, REPORT GIVEN TO CARMINE AJ.
--- NOTE | 2022-05-14 04:28 | NUR ---
SHIFT SUMMARY NO ACUTE CHANGES OVERNIGHT. POD10 LAP APPY WITH PERF. AOX4. VSS. CPN AND IV ABX ADMINISTERED OVERNIGHT. PT REPORTS CONSTANT ABD PAIN 7-05/23. PAIN MANAGED WITH DILAUDID 0.5MG, Q2 PRN. PT REPORTS PASSING VERY SMALL FLATUS. PT HAD BEEN HAVING SMALL LIQ BM. VOIDING WITHOUT DIFFICULTY. BT PRESENT. NPO. DENIES NAUSEA AND VOMITING. AMBULATING INDEPENDENTLY IN THE HALLWAY. CALL LIGHT WITHIN REACH. WILL PROVIDE REPORT TO ONCOMING NURSE.
[2022-05-14 05:56] LABS: BASOPHILS ABSOLUTE AUTO 0.09 K/mm3 (0.00-0.23); BASOPHILS PERCENT AUTO 0 % (0-2); EOSINOPHILS ABSOLUTE AUTO 0.31 K/mm3 (0.00-0.68); EOSINOPHILS PERCENT AUTO 2 % (0-6); Hematocrit 29.5 % (37.0-53.0); Hemoglobin 9.8 g/dL (13.5-17.5); IMMATURE GRAN ABSOLUTE AUTO 1.22 K/mm3 (0.00-0.10); IMMATURE GRAN PERCENT AUTO 6 % (0-1); LYMPHOCYTES ABSOLUTE AUTO 1.48 K/mm3 (0.84-5.20); LYMPHOCYTES PERCENT AUTO 7 % (21-46); MONOCYTES ABSOLUTE AUTO 1.39 K/mm3 (0.16-1.47); MONOCYTES PERCENT AUTO 7 % (4-13); Mean Corpuscular HGB 31.4 pg (26.0-34.0); Mean Corpuscular HGB Conc 33.2 g/dL (31.5-36.5); Mean Corpuscular Volume 95 fL (80-100); Mean Platelet Volume 9.7 fL (9.1-12.4); NEUTROPHILS ABSOLUTE AUTO 15.82 K/mm3 (1.96-9.15); NEUTROPHILS PERCENT AUTO 78 % (41-73); Platelet Count 693 K/mm3 (150-400); RDW Coefficient Variation 13.4 % (11.7-14.2); RDW Standard Deviation 46.8 fL (35.1-46.3); Red Blood Cell Count 3.12 M/mm3 (4.30-5.90); White Blood Cell Count 20.31 K/mm3 (4.00-11.30)
[2022-05-14 06:19] LABS: Albumin, Blood 1.9 g/dL (3.4-5.0); Albumin/Globulin Ratio 0.4 (0.8-1.8); Bun/Creatinine Ratio 20.2 (12.0-20.0); Calcium, Blood 8.9 mg/dL (8.5-10.1); Creatinine, Blood 0.74 mg/dL (0.60-1.20); Magnesium, Blood 2.5 mg/dL (1.6-2.4); Phosphorus, Blood 2.9 mg/dL (2.5-4.9); Potassium, Blood 3.4 mmol/L (3.5-5.5); Total Protein, Blood 6.9 g/dL (6.4-8.2)
[2022-05-14 06:26] LABS: BAND PERCENT MAN 2 % (0-8); BASOPHILS PERCENT MAN 0 % (0-2); EOSINOPHILS PERCENT MAN 2 % (0-6); LYMPHOCYTES PERCENT MAN 3 % (21-46); METAMYELOCYTE PERCENT MAN 1 % (0-0); MONOCYTES ABSOLUTE MAN 1.01 K/mm3 (0.16-1.47); MONOCYTES PERCENT MAN 5 % (4-13); MYELOCYTE PERCENT MAN 2 % (0-0); NEUTROPHILS ABSOLUTE MAN 17.66 K/mm3 (1.96-9.15); SEG NEUTROPHILS PERCENT MAN 85 % (41-73); TOTAL CELLS COUNTED 100
--- NOTE | 2022-05-14 14:26 | NUR ---
SHIFT SUMMARY: POD 10 LAP APPY PATIENT IS A&OX4. PATIENT IS STILL TACHY HR VILLALOBOS BUT IS WNL ON OTHER VITALS. PAIN IS MANAGED WITH IV DILAUDID. ABD IS TENDER TO TOUCH BUT IS STILL MORE FIRM ON THE RIGHT SIDE. HE IS VOIDING AND PASSING SMALL FREQUENT STOOLS/GAS. ABD TONES ARE MORE HYPERACTIVE THAN THEY HAVE BEEN. HE IS RECEVING IV NUTRITION THROUGH HIS PICC LINE. HE IS AMBULATING IN THE HALLWAYS FREQUENTLY. CALLS APPROPRIATELY. CALL LIGHT WITHIN REACH. THE PLAN IS TO CONTINUE IV ABX WELL IV NUTRITION. IN ADDITION WANTING TO CONTINUE AMBULATION FREQUENTLY POSSIBLE.
--- NOTE | 2022-05-14 15:30 | NUR ---
ASSUMED CARE OF PATIENT. PATIENT CURRENTLU RESTING IN BED, DENEIS PAIN, DENIES N/V. NO CURRENT NEEDS OR QUESTIONS. CALL LIGHT IN REACH.
--- NOTE | 2022-05-14 19:30 | NUR ---
NO ACUTE CHANGES SINCE ASSUMPTION OF CARE. STOOL SAMPLE SENT TO LAB. PAIN 8/10 O ABDOMEN, MEDICATED PER EMAR. CALLS APPROPRIATLEY. REPORT GIVEN TO CARMINE DICK.
--- NOTE | 2022-05-14 20:29 | NUR ---
RECEIVED REPORT AND ASSUMED CARE OF PT. HE IS SITTING IN BED, REPORTS PAIN IMPROVED BUT NOT WELL CONTROLLED. STATES HE HAS HAD ANOTHER LIQUID BOWEL MOVEMENT. HE DENIES ANY OTHER NEEDS AT THIS TIME, CALL LIGHT IN REACH.
--- NOTE | 2022-05-15 04:25 | NUR ---
SHIFT SUMMARY: JONNY IS A&OX4. VSS, NO ACUTE EVENTS OVERNIGHT. HE REPORTS MINIMAL PAIN CONTROL WITH DILAUDID 1 MG Q 2 HOURS. HE IS INDEPENDENT IN THE ROOM AND HALLWAYS, REPORTS CONTINUED LIQUID BOWEL MOVEMENTS. HE IS LYING IN BED WITH THE CALL LIGHT IN REACH. WILL REPORT TO DAY SHIFT RN.
[2022-05-15 06:23] LABS: Bun/Creatinine Ratio 19.9 (12.0-20.0); Calcium, Blood 8.3 mg/dL (8.5-10.1); Creatinine, Blood 0.7 mg/dL (0.60-1.20); Magnesium, Blood 2.3 mg/dL (1.6-2.4)
[2022-05-15 07:23] LABS: C DIFFICILE DNA NEGATIVE (Negative)
[2022-05-15 08:36] LABS: BASOPHILS ABSOLUTE AUTO 0.11 K/mm3 (0.00-0.23); BASOPHILS PERCENT AUTO 1 % (0-2); EOSINOPHILS PERCENT AUTO 3 % (0-6); Hematocrit 27.2 % (37.0-53.0); Hemoglobin 9.2 g/dL (13.5-17.5); IMMATURE GRAN ABSOLUTE AUTO 1.64 K/mm3 (0.00-0.10); IMMATURE GRAN PERCENT AUTO 8 % (0-1); LYMPHOCYTES ABSOLUTE AUTO 1.56 K/mm3 (0.84-5.20); LYMPHOCYTES PERCENT AUTO 8 % (21-46); MONOCYTES ABSOLUTE AUTO 1.22 K/mm3 (0.16-1.47); MONOCYTES PERCENT AUTO 6 % (4-13); Mean Corpuscular HGB 32.2 pg (26.0-34.0); Mean Corpuscular HGB Conc 33.8 g/dL (31.5-36.5); Mean Corpuscular Volume 95 fL (80-100); Mean Platelet Volume 9.6 fL (9.1-12.4); NEUTROPHILS ABSOLUTE AUTO 15.03 K/mm3 (1.96-9.15); NEUTROPHILS PERCENT AUTO 75 % (41-73); Platelet Count 676 K/mm3 (150-400); RDW Coefficient Variation 13.4 % (11.7-14.2); RDW Standard Deviation 47.3 fL (35.1-46.3); Red Blood Cell Count 2.86 M/mm3 (4.30-5.90); White Blood Cell Count 20.06 K/mm3 (4.00-11.30)
[2022-05-15 09:02] LABS: BAND PERCENT MAN 5 % (0-8); BASOPHILS PERCENT MAN 2 % (0-2); EOSINOPHILS PERCENT MAN 1 % (0-6); LYMPHOCYTES PERCENT MAN 4 % (21-46); METAMYELOCYTE PERCENT MAN 1 % (0-0); MONOCYTES PERCENT MAN 5 % (4-13); MYELOCYTE PERCENT MAN 3 % (0-0); NEUTROPHILS ABSOLUTE MAN 16.85 K/mm3 (1.96-9.15); SEG NEUTROPHILS PERCENT MAN 79 % (41-73); TOTAL CELLS COUNTED 100
--- NOTE | 2022-05-15 15:32 | NUR ---
SHIFT SUMMARY: POD 11 LAP APPY NO SIGNIFICANT CHANGES. PATIENT DID START CLEAR LIQUID DIET AND IS TOLERATING IT WELL. DENIES NAUSEA AND VOMITING. PAIN IS MANAGED WITH IV DILAUDID. ABD IS TIGHT BUT SOFT. HE HAS 3 LAP SITES WITH STERI STRIPS THAT ARE C/D/I WITH SLIGHT BRUISING AROUND THEM. HE ALSO HAS A BANDAID ON HIS RIGHT LOWER ABD THAT IS FROM HIS PARACENTESIS THAT IS C/D/I. PICC LINE IN THE RADHAMES THAT IS INFUSING HIS CPN AND ABX. HE IS INDEP. IN THE ROOM AND IS AMBULATING THE HALLS. PATIENT REPORTS PASSING GAS BUT NO BM SINCE YESTERDAY. CALLS APPROPRIATELY. CALL LIGHT WITHIN REACH. THE PLAN IS TO CONTINUE IV ABX, PAIN MANAGEMENT, AND AMBULATION.
--- NOTE | 2022-05-16 04:06 | NUR ---
SHIFT SUMMARY A/OX4, IND TO BATHROOM. C/O 05/23 ABD PAIN, MEDICATED PER EMAR Q2. DENIES NAUSEA. TOLERATING SMALL SIPS OF CLEAR LIQUIDS. VSS, NO ACUTE CHANGES AT THIS TIME. BED IN LOWEST POSITION WITH CALL LIGHT IN REACH. WILL CONTINUE TO MONITOR AND REPORT TO ONCOMING RN.
[2022-05-16 08:51] LABS: Hematocrit 27.6 % (37.0-53.0); Hemoglobin 9.3 g/dL (13.5-17.5); Mean Corpuscular HGB 32.2 pg (26.0-34.0); Mean Corpuscular HGB Conc 33.7 g/dL (31.5-36.5); Mean Corpuscular Volume 96 fL (80-100); Mean Platelet Volume 9.5 fL (9.1-12.4); Platelet Count 801 K/mm3 (150-400); RDW Coefficient Variation 13.5 % (11.7-14.2); RDW Standard Deviation 47.2 fL (35.1-46.3); Red Blood Cell Count 2.89 M/mm3 (4.30-5.90); White Blood Cell Count 24.73 K/mm3 (4.00-11.30)
[2022-05-16 08:56] LABS: Albumin, Blood 2.1 g/dL (3.4-5.0); Anion Gap 4 mmol/L (6-16); Blood Urea Nitrogen 12 mg/dL (8-24); Bun/Creatinine Ratio 18.3 (12.0-20.0); CO2, Blood 27 mmol/L (21-32); Calcium, Blood 8.5 mg/dL (8.5-10.1); Chloride, Blood 101 mmol/L (98-108); Creatinine, Blood 0.66 mg/dL (0.60-1.20); Glomerular Filtration Rate 126 (60-); Glucose, Blood 133 mg/dL (70-99); Phosphorus, Blood 2.6 mg/dL (2.5-4.9); Sodium, Blood 132 mmol/L (136-145)
[2022-05-16 09:14] LABS: BAND PERCENT MAN 1 % (0-8); BASOPHILS PERCENT MAN 0 % (0-2); EOSINOPHILS ABSOLUTE MAN 0.74 K/mm3 (0.00-0.68); EOSINOPHILS PERCENT MAN 3 % (0-6); LYMPHOCYTES ABSOLUTE MAN 0.98 K/mm3 (0.84-5.20); LYMPHOCYTES PERCENT MAN 4 % (21-46); METAMYELOCYTE ABSOLUTE MAN 0.24 K/mm3 (0.00-0.00); METAMYELOCYTE PERCENT MAN 1 % (0-0); MONOCYTES ABSOLUTE MAN 0.98 K/mm3 (0.16-1.47); MONOCYTES PERCENT MAN 4 % (4-13); MYELOCYTE ABSOLUTE MAN 1.23 K/mm3 (0.00-0.00); MYELOCYTE PERCENT MAN 5 % (0-0); NEUTROPHILS ABSOLUTE MAN 20.52 K/mm3 (1.96-9.15); SEG NEUTROPHILS PERCENT MAN 82 % (41-73); TOTAL CELLS COUNTED 100
--- NOTE | 2022-05-16 14:53 | NUR ---
SHIFT SUMMARY: POD 12 LAP APPY NO SIGNIFICANT CHANGES. PATIENT HAS REPORTED "I'VE BEEN PASSING GAS FOR THE FIRST TIME TODAY BUT IT HURTS EACH TIME I DO PASS GAS". PAIN IS MANAGED WITH IV PAIN MEDICATION AND WAS ALSO GIVEN IV REGLAN TO HELP WITH BOWEL MOTILITY. PATIENT IS VOIDING AND HAVING LOOSE BMS. ABD HAS HYPOACTIVE TONES BUT IS TOLERATING SMALL AMOUNTS OF HIS CLEAR LIQUID DIET. DENIES NAUSEA AND VOMITING. PATIENT IS STILL RECIEVING IV NUTRITION THROUGH PICC LINE WELL IV ABX TOO. ABD IS MORE FIRM ON THE LEFT SIDE BUT IS SOFTER THAN IT HAS BEEN. HIS LAP SITES HAVE STERI STRIPS THAT ARE C/D/I WITH SMALL BRUISING AROUND EACH OF THEM. PATIENT IS INDEP IN THE ROOM AND AMBULATES IN THE HALLWAYS FREQUENTLY. CALLS APPROPRIATELY. CALL LIGHT WITHIN REACH. THE PLAN IS TO DECREASE THE USE OF IV DILAUDID AND CONTINUE IV ABX WELL AMBULATION.
[2022-05-17 04:38] LABS: BASOPHILS ABSOLUTE AUTO 0.09 K/mm3 (0.00-0.23); BASOPHILS PERCENT AUTO 0 % (0-2); EOSINOPHILS ABSOLUTE AUTO 0.43 K/mm3 (0.00-0.68); EOSINOPHILS PERCENT AUTO 2 % (0-6); Hematocrit 27.4 % (37.0-53.0); IMMATURE GRAN PERCENT AUTO 5 % (0-1); LYMPHOCYTES ABSOLUTE AUTO 1.89 K/mm3 (0.84-5.20); LYMPHOCYTES PERCENT AUTO 8 % (21-46); MONOCYTES ABSOLUTE AUTO 1.25 K/mm3 (0.16-1.47); MONOCYTES PERCENT AUTO 5 % (4-13); Mean Corpuscular HGB 31.5 pg (26.0-34.0); Mean Corpuscular HGB Conc 32.8 g/dL (31.5-36.5); Mean Corpuscular Volume 96 fL (80-100); Mean Platelet Volume 9.2 fL (9.1-12.4); NEUTROPHILS ABSOLUTE AUTO 19.65 K/mm3 (1.96-9.15); NEUTROPHILS PERCENT AUTO 80 % (41-73); Platelet Count 804 K/mm3 (150-400); RDW Coefficient Variation 13.4 % (11.7-14.2); Red Blood Cell Count 2.86 M/mm3 (4.30-5.90); White Blood Cell Count 24.51 K/mm3 (4.00-11.30)
[2022-05-17 04:56] LABS: Albumin, Blood 2.1 g/dL (3.4-5.0); Albumin/Globulin Ratio 0.5 (0.8-1.8); Bilirubin, Total 0.8 mg/dL (0.1-1.0); Calcium, Blood 8.3 mg/dL (8.5-10.1); Creatinine, Blood 0.71 mg/dL (0.60-1.20); Globulin, Blood 4.6 g/dL (2.2-4.0); Potassium, Blood 4.1 mmol/L (3.5-5.5); Total Protein, Blood 6.7 g/dL (6.4-8.2)
--- NOTE | 2022-05-17 05:42 | NUR ---
ASSUMED CARE OF PT AT 1900HRS. NO ACUTE CHANGES THIS SHIFT. PT IS A&OX4, INDEPENDENT IN ROOM AND IS ABLE TO MAKE NEEDS KNOWN. PT AMBULATES THE HALLWAY 3 TIMES THIS SHIFT. MULTIPLE REQUESTS FOR PRN GABY, STATES THAT THEY OTHER MEDS DO NOT HELP. PT ABLE TO SLEEP 3 HOURS THIS SHIFT. TOLERATING CLEAR LIQUDS. REPORTS LOOSE STOOLS AND PASSING OF FLATUS. WILL CONTINUE TO MONITOR AND GIVE REPORT TO RAJAN AJ.
--- NOTE | 2022-05-18 04:47 | NUR ---
ASSUMED CARE OF PT AT 1900. NO ACUTE CHANGES THIS SHIFT. PT IS A&OX4, INDEPENDENT WITH CARES AND IS ABLE TO MAKE NEEDS KNOWN. POST OP DAY 14 FOR LAP APPY. PAIN MEDS CHANGED, PT RECEIVING PERCOCET AND IV DILAUDID FOR PAIN. LAP SITES ARE CDI, TOLERATING CLEAR LIQUIDS, REPORTS PASSING OF GAS. PT ABLE TO SLEEP THIS SHIFT, 4+ HOURS. WILL CONTINUE TO MONITOR AND GIVE REPORT TO ONCOMING RN.
[2022-05-18 05:41] LABS: BASOPHILS ABSOLUTE AUTO 0.07 K/mm3 (0.00-0.23); BASOPHILS PERCENT AUTO 0 % (0-2); EOSINOPHILS ABSOLUTE AUTO 0.59 K/mm3 (0.00-0.68); EOSINOPHILS PERCENT AUTO 2 % (0-6); Hematocrit 25.6 % (37.0-53.0); Hemoglobin 8.6 g/dL (13.5-17.5); IMMATURE GRAN ABSOLUTE AUTO 0.91 K/mm3 (0.00-0.10); IMMATURE GRAN PERCENT AUTO 4 % (0-1); LYMPHOCYTES PERCENT AUTO 7 % (21-46); MONOCYTES ABSOLUTE AUTO 1.23 K/mm3 (0.16-1.47); MONOCYTES PERCENT AUTO 5 % (4-13); Mean Corpuscular HGB 32.1 pg (26.0-34.0); Mean Corpuscular HGB Conc 33.6 g/dL (31.5-36.5); Mean Corpuscular Volume 96 fL (80-100); NEUTROPHILS ABSOLUTE AUTO 20.36 K/mm3 (1.96-9.15); NEUTROPHILS PERCENT AUTO 82 % (41-73); Platelet Count 823 K/mm3 (150-400); RDW Coefficient Variation 13.6 % (11.7-14.2); RDW Standard Deviation 47.6 fL (35.1-46.3); Red Blood Cell Count 2.68 M/mm3 (4.30-5.90); White Blood Cell Count 24.86 K/mm3 (4.00-11.30)
[2022-05-18 06:19] LABS: Magnesium, Blood 2.2 mg/dL (1.6-2.4)
[2022-05-18 06:20] LABS: Albumin/Globulin Ratio 0.4 (0.8-1.8); Bilirubin, Total 0.7 mg/dL (0.1-1.0); Bun/Creatinine Ratio 14.1 (12.0-20.0); Calcium, Blood 8.2 mg/dL (8.5-10.1); Creatinine, Blood 0.64 mg/dL (0.60-1.20); Globulin, Blood 4.6 g/dL (2.2-4.0); Phosphorus, Blood 2.4 mg/dL (2.5-4.9); Potassium, Blood 4.1 mmol/L (3.5-5.5); Total Protein, Blood 6.6 g/dL (6.4-8.2)
--- NOTE | 2022-05-18 19:00 | NUR ---
SHIFT SUMMARY POD14, A/O X4, VSS, TOLERATING PO INTAKE, CPN REDUCED TO 12 ON 12 OFF RUNNING AT REDUCED RATES AT NIGHT ONLY TO ENCOURAGE PO INTAKE INCREASE, INDEPENDENT WHILE AMBULATING IN ROOM/HALLS, TAKING SHORT FREQUENT WALKS IN THE PUCKETT. PAIN BETTER MANAGED WITH ROTATING PO AND IV PAIN MEDICATIONS. NO ACUTE EVENT THIS SHIFT, CALL LIGHT IN REACH, WILL CTM AND REPORT TO ONCOMING NOC RN.
[2022-05-19 06:07] LABS: BASOPHILS ABSOLUTE AUTO 0.08 K/mm3 (0.00-0.23); BASOPHILS PERCENT AUTO 0 % (0-2); EOSINOPHILS ABSOLUTE AUTO 0.62 K/mm3 (0.00-0.68); EOSINOPHILS PERCENT AUTO 3 % (0-6); Hematocrit 25.9 % (37.0-53.0); Hemoglobin 8.3 g/dL (13.5-17.5); IMMATURE GRAN ABSOLUTE AUTO 0.45 K/mm3 (0.00-0.10); IMMATURE GRAN PERCENT AUTO 2 % (0-1); LYMPHOCYTES ABSOLUTE AUTO 1.51 K/mm3 (0.84-5.20); LYMPHOCYTES PERCENT AUTO 8 % (21-46); MONOCYTES ABSOLUTE AUTO 1.05 K/mm3 (0.16-1.47); MONOCYTES PERCENT AUTO 6 % (4-13); Mean Corpuscular HGB 30.9 pg (26.0-34.0); Mean Corpuscular Volume 96 fL (80-100); Mean Platelet Volume 9.3 fL (9.1-12.4); NEUTROPHILS ABSOLUTE AUTO 15.41 K/mm3 (1.96-9.15); NEUTROPHILS PERCENT AUTO 81 % (41-73); Platelet Count 832 K/mm3 (150-400); RDW Coefficient Variation 13.7 % (11.7-14.2); RDW Standard Deviation 48.1 fL (35.1-46.3); Red Blood Cell Count 2.69 M/mm3 (4.30-5.90); White Blood Cell Count 19.12 K/mm3 (4.00-11.30)
--- NOTE | 2022-05-19 07:41 | NUR ---
SUMMARY REQUIRING PO AND IV PAIN MEDS FOR ADEQUATE PAIN CONTROL. DENIES NAUSEA. AMBULATORY AND VOIDING.
--- NOTE | 2022-05-19 17:52 | NUR ---
SUMMARY PT REPORTS ABD "FEELS BETTER" WITH URACIL DRAIN IN PLACE, DENIES ANY NAUSEA, REPORTS HAVING NO APPETITE, CONT. TO AMBULATE DOWN THE HALLS, TOLERATING FULL LIQUID DIET FAIRLY WELL, STATES "I HAVE TO MAKE MYSELF EAT IT" ABD SOFT, NO ACUTE CHANGES THIS SHIFT.
--- NOTE | 2022-05-20 07:32 | NUR ---
SUMMARY NO C/O NAUSEA. VOIDING. REPORTS PAIN IMPROVED.
--- NOTE | 2022-05-20 08:53 | NUR ---
CONT. TO REPORT HAVING CONSTANT 7/10 ABD PAIN, DENIES ANY NAUSEA, STATES FEELING "HUNGRY" TODAY, PT ON REGULAR DIET THIS AM, CONT. TO MONITOR FOR ANY CHANGES.
--- NOTE | 2022-05-20 17:35 | NUR ---
SUMMARY NO CHANGES IN PAIN LEVEL TODAY, REPORTS TOLERATING REG DIET WELL BUT STATES "I HAVE TO MAKE MYSELF EAT IT" STILL REPORTS HAVING DECREASED APPETITE BUT SOMETIMES FEELS HUNGRY, DENIES ANY NAUSEA, MINIMAL OUTPUT FROM URASIL DRAIN TODAY, PT CONT. AMBULATE DOWN THE HALLS, REPORTS HAVING LOOSE BROWN BM, PICC DSG CHANGED TODAY, NO ACUTE CHANGES THIS SHIFT.
--- NOTE | 2022-05-21 03:48 | NUR ---
POD 17. VSS. PT TOLLERATING PO INTAKE WELL BUT REPORTS INCREASED FEELINGS OF PRESSURE AND FULLNESS IN THE UPPER ABDOMEN AFTER INTAKE. PT REPORTS PASSING GAS REGULARLY BUT HAS HAD NO BMS TONIGHT. VOIDING REGULARLY AND WITHOUT DIFFICULTY. PAIN HAS BEEN MANAGED WITH PO AND IV MEDICATION, PT REPORTS AN HOUR OF RELIEF AFTER BEING MEDICATED WITH EITHER OXYCODONE OR DILAUDID. INCISIONS HAVE REMAINED C/D/I. URACEL DRAINING SANGUINEOUS FLUID. NO ACUTE EVENTS NOTED T/O THE NIGHT. PT AMBULATED THE HALLS INDEPENTENDLY AND WAS ABLE TO SLEEP ON AND OFF.
--- NOTE | 2022-05-21 04:22 | NUR ---
PT VSS T/O NIGHT. URESIL DRAIN HAD APPX 100ML SANGUINOUS OUTPUT. ABD REMAINS DISTENDED, SOFT TO PALP. PT REP PAIN IN LUQ AND ACCROSS LOWER ABD. PAIN MGD W/2 PERCOCET, DID REQ DILAUDID FOR BREAKTHROUGH PAIN X2. PT REP +FLATUS, NO BM THIS SHIFT, IS VOIDING URINE W/O DIFFICULTY. PT AMB IN HALLS, CONY WELL.
[2022-05-21 06:31] LABS: Alanine Aminotransfer (ALT/SGP 32 U/L (12-78); Albumin, Blood 2.2 g/dL (3.4-5.0); Albumin/Globulin Ratio 0.5 (0.8-1.8); Alk Phos 118 U/L (50-136); Anion Gap 4 mmol/L (6-16); Aspartate Aminotrans (AST/SGOT 15 U/L (12-37); Bilirubin, Total 0.5 mg/dL (0.1-1.0); Blood Urea Nitrogen 7 mg/dL (8-24); Bun/Creatinine Ratio 10.3 (12.0-20.0); CO2, Blood 27 mmol/L (21-32); Calcium, Blood 8.6 mg/dL (8.5-10.1); Chloride, Blood 105 mmol/L (98-108); Creatinine, Blood 0.68 mg/dL (0.60-1.20); Globulin, Blood 4.8 g/dL (2.2-4.0); Glomerular Filtration Rate 125 (60-); Glucose, Blood 109 mg/dL (70-99); Potassium, Blood 4.4 mmol/L (3.5-5.5); Sodium, Blood 136 mmol/L (136-145); Triglycerides 111 mg/dL (30-140)
--- NOTE | 2022-05-21 19:47 | NUR ---
SHIFT SUMMARY POD 17, A/O X4, VSS, TOLERATING PO, INDEPENDENT IN ROOM/HALLS, PAIN MANAGEMENT IMPROVED WITHOUT NEEDING IV NARCOTICS, PT ESPRESSED DESIRE TO GO HOME IF POSSIBLE AND ABLE TO DO TREATMENT AT HOME OR FROM HOME WITH FOLLOW UP WHICH WAS RELAYED TO SURGEON WITH POSSIBILITY IN AM PENDING AM LABS. NO ACUTE EVENTS THIS SHIFT. CALL LIGHT IN REACH, REPORT GIVEN TO CARMINE AJ.
--- NOTE | 2022-05-22 03:52 | NUR ---
POD 18, VSS, PT TOLLERATING PO INTAKE WELL. DOES NOT C/O DISCOMFORT FROM EATING. PT REPORTS PASSING FLATTUS AND HAVING A BM TONIGHT W/O DIFFICULTY. VOIDING REGULARLY W/O DIFFICULTY. PAIN HAS BEEN MANAGED WITH PO MEDICATION, PT REPORTS DICOMFORT BEING "DULLED" AFTER ADMINISTRATION. LAP SITES HAVE REMAINED C/D/I. URACEL DRAIN HAS REMAINED C/D/I, AND PATENT. 10 MLS SANGUINEOUS FLUID. NO ACUTE EVENTS NOTED T/O THE NIGHT. PT AMBULATED THE HALLS INDEPENDENTLY AND SLEPT MOST OF THE NIGHT.
[2022-05-22 05:57] LABS: BASOPHILS ABSOLUTE AUTO 0.07 K/mm3 (0.00-0.23); BASOPHILS PERCENT AUTO 1 % (0-2); EOSINOPHILS ABSOLUTE AUTO 0.63 K/mm3 (0.00-0.68); EOSINOPHILS PERCENT AUTO 4 % (0-6); Hematocrit 26.8 % (37.0-53.0); Hemoglobin 8.5 g/dL (13.5-17.5); IMMATURE GRAN ABSOLUTE AUTO 0.17 K/mm3 (0.00-0.10); IMMATURE GRAN PERCENT AUTO 1 % (0-1); LYMPHOCYTES ABSOLUTE AUTO 1.51 K/mm3 (0.84-5.20); LYMPHOCYTES PERCENT AUTO 10 % (21-46); MONOCYTES ABSOLUTE AUTO 0.98 K/mm3 (0.16-1.47); MONOCYTES PERCENT AUTO 7 % (4-13); Mean Corpuscular HGB 30.4 pg (26.0-34.0); Mean Corpuscular HGB Conc 31.7 g/dL (31.5-36.5); Mean Corpuscular Volume 96 fL (80-100); Mean Platelet Volume 9.1 fL (9.1-12.4); NEUTROPHILS ABSOLUTE AUTO 11.67 K/mm3 (1.96-9.15); NEUTROPHILS PERCENT AUTO 78 % (41-73); Platelet Count 873 K/mm3 (150-400); White Blood Cell Count 15.03 K/mm3 (4.00-11.30)
[2022-05-22 06:08] LABS: Bun/Creatinine Ratio 11.4 (12.0-20.0); Calcium, Blood 8.2 mg/dL (8.5-10.1); Creatinine, Blood 0.79 mg/dL (0.60-1.20); Potassium, Blood 4.5 mmol/L (3.5-5.5)
[2022-05-22] MEDS ORDERED: LEVFLO500 PO (13:10)
[2022-05-22] MEDS ORDERED: Percocet 5-3251 EACH PO (13:11)
--- NOTE | 2022-05-22 14:43 | NUR ---
DISCHARGE SUMMARY POD 18 LAP APPY c DRAIN PLACEMENT. DRAIN REMOVED BY SURGEON WITH EDUCATION PROVIDED BY SAME DURING REMOVAL. PICC LINE REMOVED BY THIS RN, VERIFIED CATHER LENGTH AT TIME OF REMOVAL WAS CONSISTENT WITH THAT OF PLACEMENT WHICH IT WAS. DISCUSSED DISCHARGE INFORMATION WITH THE PATIENT INCLUDING HOME CARE, THINGS TO LOOK OUT FOR AND HOW TO GET A HOLD OF THE SURGEON, MEDICATIONS, AND FOLLOW UP INFORMATION. PT DENIES ANY QUESTIONS AT THIS TIME.
== END 2022-05-22 13:00 | disposition home or self-care (01) | DRG 853 ==
LOC: ER 19:25 → SURS 22:16
PROVIDERS: Emergency Medicine; Internal Medicine; Physician Assistant; Surgery; ADMIT Surgery
PROC: 3E03329 Introduction of Other Anti-infective into Peripheral Vein, Percutaneous Approach (ICD-10-PCS; 2022-05-04)
PROC: 0DTJ4ZZ Resection of Appendix, Percutaneous Endoscopic Approach (ICD-10-PCS; principal; 2022-05-04 10:30)
PROC: 02HV33Z Insertion of Infusion Device into Superior Vena Cava, Percutaneous Approach (ICD-10-PCS; 2022-05-12)
PROC: 0W9G3ZZ Drainage of Peritoneal Cavity, Percutaneous Approach (ICD-10-PCS; 2022-05-13)
DX: A41.51 Sepsis due to Escherichia coli [E. coli] (principal); K35.21 Acute appendicitis with generalized peritonitis, with abscess; E87.1 Hypo-osmolality and hyponatremia; K56.7 Ileus, unspecified; F10.139 Alcohol abuse with withdrawal, unspecified; Z20.822 Contact with and (suspected) exposure to COVID-19; F17.210 Nicotine dependence, cigarettes, uncomplicated; K25.9 Gastric ulcer, unspecified as acute or chronic, without hemorrhage or perforation; E83.39 Other disorders of phosphorus metabolism; E83.42 Hypomagnesemia; E87.6 Hypokalemia; F12.90 Cannabis use, unspecified, uncomplicated; R65.20 Severe sepsis without septic shock; A41.59 Other Gram-negative sepsis
CPT/HCPCS: 0241U; 36415; 36569; 49083; 49405; 71045; 74160; 74176; 74177; 80048; 80053; 80069; 81001; 82947; 83605; 83690; 83735; 84100; 84145; 84478; 85025; 85027; 85610; 85730; 86140; 87040; 87070; 87075; 87077; 87186; 87205; 87493; 88304; 89051; 94760; 96365; 96366; 96367; 96375; 96376; 99285-25; A9270; C1751; G0378; J0295; J0610; J0696; J1100; J1170; J1650; J1885; J2060; J2250; J2405; J2543; J2550; J2704; J2765; J2795; J3010; J3360; J3411; J3475; J3480; J7030; J7040; J7042; J7050; J7120; J7131; Q9967

== ENCOUNTER → 2022-05-29 | Outpatient (CLI) | payer OTHER ==
[~2022-05-29] MED LIST: LEVFLO500 PO; Percocet 5-3251 EACH PO
[2022-05-29 17:42] LABS: BASOPHILS ABSOLUTE AUTO 0.13 K/mm3 (0.00-0.23); BASOPHILS PERCENT AUTO 1 % (0-2); EOSINOPHILS ABSOLUTE AUTO 1.29 K/mm3 (0.00-0.68); EOSINOPHILS PERCENT AUTO 9 % (0-6); Hematocrit 33.3 % (37.0-53.0); Hemoglobin 10.5 g/dL (13.5-17.5); IMMATURE GRAN ABSOLUTE AUTO 0.09 K/mm3 (0.00-0.10); IMMATURE GRAN PERCENT AUTO 1 % (0-1); LYMPHOCYTES ABSOLUTE AUTO 2.68 K/mm3 (0.84-5.20); LYMPHOCYTES PERCENT AUTO 18 % (21-46); MONOCYTES ABSOLUTE AUTO 0.92 K/mm3 (0.16-1.47); MONOCYTES PERCENT AUTO 6 % (4-13); Mean Corpuscular HGB 29.5 pg (26.0-34.0); Mean Corpuscular HGB Conc 31.5 g/dL (31.5-36.5); Mean Corpuscular Volume 94 fL (80-100); Mean Platelet Volume 9.4 fL (9.1-12.4); NEUTROPHILS ABSOLUTE AUTO 9.69 K/mm3 (1.96-9.15); NEUTROPHILS PERCENT AUTO 66 % (41-73); Platelet Count 782 K/mm3 (150-400); RDW Coefficient Variation 14.1 % (11.7-14.2); RDW Standard Deviation 48.5 fL (35.1-46.3); Red Blood Cell Count 3.56 M/mm3 (4.30-5.90)
[2022-05-29 19:11] LABS: Alanine Aminotransfer (ALT/SGP 69 U/L (12-78); Albumin, Blood 3.4 g/dL (3.4-5.0); Albumin/Globulin Ratio 0.7 (0.8-1.8); Alk Phos 137 U/L (50-136); Anion Gap 7 mmol/L (6-16); Aspartate Aminotrans (AST/SGOT 32 U/L (12-37); Bilirubin, Total 0.7 mg/dL (0.1-1.0); Blood Urea Nitrogen 7 mg/dL (8-24); Bun/Creatinine Ratio 8.6 (12.0-20.0); CHOL/HDL RATIO 3.4; CO2, Blood 28 mmol/L (21-32); Calcium, Blood 10.1 mg/dL (8.5-10.1); Chloride, Blood 103 mmol/L (98-108); Cholesterol 131 mg/dL (50-200); Creatinine, Blood 0.81 mg/dL (0.60-1.20); Globulin, Blood 5.1 g/dL (2.2-4.0); Glomerular Filtration Rate 119 (60-); Glucose, Blood 106 mg/dL (70-99); HDL Cholesterol 39 mg/dL (>39); LDL/HDL RATIO 1.7; Low Density Lipoprotein Chol 67 mg/dL (0-110); Potassium, Blood 5.3 mmol/L (3.5-5.5); Sodium, Blood 138 mmol/L (136-145); Total Protein, Blood 8.5 g/dL (6.4-8.2); Triglycerides 126 mg/dL (30-140); Very Low Density Lipoprot Chol 25 mg/dL (6-28)
[2022-05-31 01:07] LABS: CHLAMYDIA TRACHOMATIS, NAA Negative (Negative); HBSAG SCREEN Negative (Negative); HCV AB 0.1 (0.0-0.9); HEP B CORE AB, TOT Negative (Negative)
== END | disposition home or self-care (01) ==
LOC: LAB 08:15 → LAB SHORT 08:15
PROVIDERS: Nurse Practitioner Family
DX: Z13.220 Encounter for screening for lipoid disorders (principal); Z11.59 Encounter for screening for other viral diseases; Z11.3 Encounter for screening for infections with a predominantly sexual mode of transmission; E87.6 Hypokalemia
CPT/HCPCS: 80053; 80061; 85025; 86592; 86704; 86708; 86803; 87340; 87491; 87591

== ENCOUNTER 2023-05-30 14:35 | Emergency (ER) | payer OTHER ==
[~2023-05-30] VITALS: Ht 177.8 cm; Wt 90.7 kg
[2023-05-30 15:15] VITALS: BP 167/99
[2023-05-30] MEDS ORDERED: CEPH500 PO (15:20)
== END 2023-05-30 15:23 | disposition home or self-care (01) ==
LOC: ER 14:35
DX: R21 Rash and other nonspecific skin eruption (principal); F17.200 Nicotine dependence, unspecified, uncomplicated
CPT/HCPCS: 99282

== ENCOUNTER → 2023-10-22 | Outpatient (CLI) | payer OTHER ==
[~2023-10-22] MED LIST changes: +CEPH500 PO
[2023-10-22 17:42] LABS: BASOPHILS ABSOLUTE AUTO 0.09 K/mm3 (0.00-0.23); BASOPHILS PERCENT AUTO 1 % (0-2); EOSINOPHILS ABSOLUTE AUTO 0.39 K/mm3 (0.00-0.68); EOSINOPHILS PERCENT AUTO 4 % (0-6); Hemoglobin 16.8 g/dL (13.5-17.5); IMMATURE GRAN ABSOLUTE AUTO 0.08 K/mm3 (0.00-0.10); IMMATURE GRAN PERCENT AUTO 1 % (0-1); LYMPHOCYTES ABSOLUTE AUTO 2.45 K/mm3 (0.84-5.20); LYMPHOCYTES PERCENT AUTO 25 % (21-46); MONOCYTES ABSOLUTE AUTO 0.67 K/mm3 (0.16-1.47); MONOCYTES PERCENT AUTO 7 % (4-13); Mean Corpuscular HGB Conc 34.3 g/dL (31.5-36.5); Mean Corpuscular Volume 93 fL (80-100); Mean Platelet Volume 10.3 fL (9.1-12.4); NEUTROPHILS ABSOLUTE AUTO 6.17 K/mm3 (1.96-9.15); NEUTROPHILS PERCENT AUTO 63 % (41-73); Platelet Count 296 K/mm3 (150-400); RDW Coefficient Variation 12.9 % (11.7-14.2); RDW Standard Deviation 44.1 fL (35.1-46.3); Red Blood Cell Count 5.25 M/mm3 (4.30-5.90); White Blood Cell Count 9.85 K/mm3 (4.00-11.30)
[2023-10-22 18:18] LABS: Magnesium, Blood 2.2 mg/dL (1.6-2.4)
[2023-10-22 18:25] LABS: CHOL/HDL RATIO 3.3; Cholesterol 198 mg/dL (50-200); HDL Cholesterol 60 mg/dL (>39); LDL/HDL RATIO 1.5; Low Density Lipoprotein Chol 91 mg/dL (0-110); Triglycerides 233 mg/dL (30-140); Very Low Density Lipoprot Chol 46 mg/dL (6-28)
[2023-10-24 09:12] LABS: A/G RATIO 1.6 (1.2-2.2); BILIRUBIN, TOTAL 0.3 mg/dL (0.0-1.2); CALCIUM, SERUM 10.1 mg/dL (8.7-10.2); CREATININE, SERUM 1.1 mg/dL (0.76-1.27); GLOBULIN, TOTAL 3.2 g/dL (1.5-4.5); POTASSIUM, SERUM 5.5 mmol/L (3.5-5.2); PROTEIN, TOTAL, SERUM 8.2 g/dL (6.0-8.5)
== END ==
LOC: LAB SHORT 16:10 → LAB 16:10
PROVIDERS: Family Medicine
DX: R03.0 Elevated blood-pressure reading, without diagnosis of hypertension (principal)
CPT/HCPCS: 80053; 80061; 83036; 83735; 84443; 85025

== ENCOUNTER → 2024-06-01 | Outpatient (CLI) | payer OTHER | LOC: LAB 08:21 → LAB SHORT 08:21 | DX: D22.5 Melanocytic nevi of trunk (principal) | CPT/HCPCS: 88305 ==

== ENCOUNTER 2024-09-18 23:07 | Emergency (ER) | payer OTHER ==
[~2024-09-18] VITALS: Ht 177.8 cm; Wt 90.7 kg
[2024-09-18 23:26] VITALS: BP 129/98
[2024-09-18] MEDS ORDERED: Ketorolac Tromethamine 15mg Vial IM ONE (23:45)
[2024-09-18] MEDS ORDERED: OxyCODONE HCL 5 MG TAB PO ONE (23:45)
[2024-09-19] MEDS ORDERED: OXAYDO5 M1 PO ×2 (00:24→00:42)
[2024-09-19] MEDS ORDERED: Cephalexin Monohydrate 500 MG Cap PO ONE (00:25)
[2024-09-19] MEDS ORDERED: CEPH500 PO ×2 (00:26→00:42)
== END 2024-09-19 00:45 | disposition home or self-care (01) ==
LOC: ER 23:07
DX: T81.49XA Infection following a procedure, other surgical site, initial encounter (principal); L03.211 Cellulitis of face; F17.210 Nicotine dependence, cigarettes, uncomplicated
CPT/HCPCS: 96372; 99283-25; A9270; J1885

== ENCOUNTER 2024-09-24 03:59 | Emergency (ER) | payer OTHER ==
[~2024-09-24] VITALS: Ht 177.8 cm; Wt 90.7 kg
[~2024-09-24 03:59] MED LIST changes: +OXAYDO5 M1 PO
[2024-09-24 05:05] VITALS: BP 148/95
[2024-09-24] MEDS ORDERED: Ketorolac Tromethamine 30mg Vial IM ONE (06:20)
[2024-09-24] MEDS ORDERED: Percocet 5-3251 EACH PO (06:25)
== END 2024-09-24 06:41 | disposition home or self-care (01) ==
LOC: ER 03:59
DX: G89.18 Other acute postprocedural pain (principal); S00.81XA Abrasion of other part of head, initial encounter; F17.210 Nicotine dependence, cigarettes, uncomplicated
CPT/HCPCS: 96372; 99282-25; J1885